=== PATIENT | female | born 1970 | race African-American/Black ===

== ENCOUNTER 2018-12-28 10:53 | Emergency (ER) | payer SELFPAY ==
[2018-12-28 12:36] LABS: HEMOGLOBIN A1C 6.2 % (4.50-6.20)
[2018-12-28] MEDS ORDERED: Sodium Chloride 0.9% 1,000 ML IV ONE (13:32)
[2018-12-28] MEDS ORDERED: Sodium Chloride 0.9% 10 ML Syringe FLUSH PRN (13:32)
[2018-12-28] MEDS ORDERED: Labetalol 100 MG/20 ML MDV IVPUSH ONE ×2 (13:32→14:15)
[2018-12-28] MEDS ORDERED: Losartan 100 MG Tab PO ONE (14:55)
--- NOTE | 2018-12-28 15:01 | CR ---
Chest: Portable view of the chest was obtained. Comparison: No prior chest imaging. Heart size and mediastinum are normal. Ventriculoperitoneal shunt is seen. Lungs are clear with no acute parenchymal change. Bony structures are grossly intact. Impression: 1. Nothing acute is appreciated on portable chest x-ray. Diagnostic code #2
[2018-12-28 15:22] VITALS: BP 166/90
--- NOTE | 2018-12-28 16:10 | EDM.PDOC ---
ED HPI GENERAL MEDICAL PROBLEM - General Chief Complaint: Cardiovascular Problem Stated Complaint: DIZZY,STOMACH PAIN Time Seen by Provider: 12/28/18 13:25 Source of Information: Reports: Patient History Limitations: Reports: No Limitations - History of Present Illness INITIAL COMMENTS - FREE TEXT/NARRATIVE: Patient is a 54 year old sami speaking male who presents to the E.D. complaining of bilateral chest pain, bilateral shoulder pain, and thoracic back pain. States this has been going on for the past 3 months but notes increase over the past week. Patient states with any exertional activity He becomes tired or easier with development of chain from his back along the lateral aspect of his chest and into the anterior aspect of his chest. This is unusual for the patient. He does work as a heavy duty truck mechanic and questions if this may not be related to deconditioning. At times he does feel short of breath. At no time does experience any fever, cough, palpitations, dizziness, diaphoresis, abdominal pain, nausea vomiting, and/or any additional complaints. States he walked 10 stairs before he gets short of breath. There's been no increase in weight, PND, orthopnea. no pedal edema noted. He has a history of hypertension and high cholesterol. There is a family history of first degree relative with heart disease. He denies any history of coronary diseaseor diabetes. He does not smoke. Alcohol use none. Drug use none. he is here working with no PCP locally. 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 Psychiatric History: Reports: None Endocrine/Metabolic History: Reports: Diabetes, Type II Hematologic History: Reports: None Immunologic History: Reports: None Oncologic (Cancer) History: Reports: None Dermatologic History: Reports: None - Infectious Disease History Infectious Disease History: Reports: Chicken Pox, Measles, Mumps - Past Surgical History HEENT Surgical History: Reports: None Cardiovascular Surgical History: Reports: None Female Surgical History: Reports: Section, Tubal Ligation Neurological Surgical History: Reports: None Musculoskeletal Surgical History: Reports: Other (See Below) Other Musculoskeletal Surgeries/Procedures:: right arm sx Social & Family History - Family History Family Medical History: Noncontributory - Tobacco Use Smoking Status *Q: Never Smoker - Caffeine Use Caffeine Use: Reports: Coffee - Recreational Drug Use Recreational Drug Use: Yes Drug Use in Last 12 Months: Yes Recreational Drug Type: Reports: Marijuana/Hashish Recreational Drug Use Frequency: Socially ED ROS GENERAL - Review of Systems Review Of Systems: ROS reveals no pertinent complaints other than HPI. ED EXAM, GENERAL - Physical Exam Exam: See Below Exam Limited By: No Limitations General Appearance: Alert, WD/WN, No Apparent Distress Eye Exam: Bilateral Eye: EOMI, Normal Inspection, Nystagmus (none noted), PERRL , Vision Changes (none noted) Ears: Normal External Exam, Hearing Grossly Normal Nose: Normal Inspection Throat/Mouth: Normal Inspection, Normal Oropharynx, Normal Voice, No Airway Compromise Head: Atraumatic, Normocephalic Neck: Normal Inspection, Supple, Non-Tender, Full Range of Motion Respiratory/Chest: No Respiratory Distress, Lungs Clear, Normal Breath Sounds, No Accessory Muscle Use, Chest Non-Tender Cardiovascular: Normal Peripheral Pulses, Regular Rate, Rhythm, No Murmur Peripheral Pulses: 2+: Radial (L), Radial (R) GI/Abdominal: Normal Bowel Sounds, Soft, Non-Tender, No Organomegaly, No Distention Back Exam: Normal Inspection, Full Range of Motion Extremities: Normal Inspection, Normal Range of Motion, Non-Tender, No Pedal Edema Neurological: Alert, Oriented, CN II-XII Intact, Normal Cognition, Normal Gait, No Motor/Sensory Deficits, Other (No slurred speech, facial droop, tongue deviation. No weakness discrepancies to the upper and lower extremities. Finger to nose, rapid alternating movements, and gait are all intact.) Psychiatric: Normal Affect, Normal Mood Skin Exam: Warm, Dry, Intact, Normal Color Course - Vital Signs Last Recorded V/S: Last Vital Signs Temp 98.1 F 12/28/18 11:05 Pulse 81 12/28/18 11:05 Resp 18 12/28/18 11:05 BP 166/90 H 12/28/18 15:22 Pulse Ox 100 12/28/18 11:05 - Orders/Labs/Meds Orders: Active Orders 24 hr Category Date Time Status EKG 12 Lead [EKG Documentation Completion] [RC] STAT Care 12/28/18 13:34 Active Peripheral IV Care [RC] . DIRECTED Care 12/28/18 13:33 Active Peripheral IV Insertion Adult [OM.PC] Routine Oth 12/28/18 13:32 Ordered Labs: Laboratory Tests 12/28/18 12/28/18 12/28/18 Range/Units 12:09 12:09 12:09 WBC 6.04 (3.98-10.04) K/mm3 RBC 4.48 (3.98-5.22) M/mm3 Hgb 10.2 L (11.2-15.7) gm/L Hct 33.5 L (34.1-44.9) % MCV 74.8 L (79.4-94.8) fl MCH 22.8 L (25.6-32.2) pg MCHC 30.4 L (32.2-35.5) g/dl RDW Std Deviation 56.7 H (36.4-46.3) fL Plt Count 217 (182-369) K/mm3 Neut % (Auto) 53.8 (34.0-71.1) % Lymph % (Auto) 36.4 (19.3-51.7) % [place] % (Auto) 7.6 (4.7-12.5) % Eos % (Auto) 1.2 (0.7-5.8) Baso % (Auto) 1.0 (0.1-1.2) % Neut # (Auto) 3.25 (1.56-6.13) K/mm3 Lymph # (Auto) 2.20 (1.18-3.74) K/mm3 [place] # (Auto) 0.46 H (0.24-0.36) K/mm3 Eos # (Auto) 0.07 (0.04-0.36) K/mm3 Baso # (Auto) 0.06 (0.01-0.08) K/mm3 Manual Slide Review Abnormal smear Sodium 137 (136-145) mEq/L Potassium 4.2 (3.5-5.1) mEq/L Chloride 104 (98-107) mEq/L Carbon Dioxide 27 (21-32) mEq/L Anion Gap 10.2 (5-15) BUN 14 (7-18) mg/dL Creatinine 0.9 (0.55-1.02) mg/dL Est Cr Clr Drug Dosing 67.45 mL/min Estimated GFR (MDRD) > 60 (>60) mL/min BUN/Creatinine Ratio 15.6 (14-18) Glucose 127 H (74-106) mg/dL Hemoglobin A1c 6.20 (4.50-6.20) % Calcium 8.9 (8.5-10.1) mg/dL Magnesium 2.1 (1.8-2.4) mg/dl Total Bilirubin 0.3 (0.2-1.0) mg/dL AST 10 L (15-37) U/L ALT 14 (14-59) U/L Alkaline Phosphatase 61 (46-116) U/L Troponin I < 0.017 (0.00-0.056) ng/mL Total Protein 7.2 (6.4-8.2) g/dl Albumin 3.5 (3.4-5.0) g/dl Globulin 3.7 gm/dL Albumin/Globulin Ratio 1.0 (1-2) Urine Color (Yellow) Urine Appearance (Clear) Urine pH (5.0-8.0) Ur Specific [place] (1.005-1.030) Urine Protein (Negative) Urine Glucose (UA) (Negative) Urine Ketones (Negative) Urine Occult Blood (Negative) Urine Nitrite (Negative) Urine Bilirubin (Negative) Urine Urobilinogen (0.2-1.0) Ur Leukocyte Esterase (Negative) Urine RBC (0-5) /hpf Urine WBC (0-5) /hpf Ur Epithelial Cells (0-5) /hpf Urine Bacteria (FEW) /hpf Urine Mucus (FEW) /hpf 12/28/18 Range/Units 12:25 WBC (3.98-10.04) K/mm3 RBC (3.98-5.22) M/mm3 Hgb (11.2-15.7) gm/L Hct (34.1-44.9) % MCV (79.4-94.8) fl MCH (25.6-32.2) pg MCHC (32.2-35.5) g/dl RDW Std Deviation (36.4-46.3) fL Plt Count (182-369) K/mm3 Neut % (Auto) (34.0-71.1) % Lymph % (Auto) (19.3-51.7) % [place] % (Auto) (4.7-12.5) % Eos % (Auto) (0.7-5.8) Baso % (Auto) (0.1-1.2) % Neut # (Auto) (1.56-6.13) K/mm3 Lymph # (Auto) (1.18-3.74) K/mm3 [place] # (Auto) (0.24-0.36) K/mm3 Eos # (Auto) (0.04-0.36) K/mm3 Baso # (Auto) (0.01-0.08) K/mm3 Manual Slide Review Sodium (136-145) mEq/L Potassium (3.5-5.1) mEq/L Chloride (98-107) mEq/L Carbon Dioxide (21-32) mEq/L Anion Gap (5-15) BUN (7-18) mg/dL Creatinine (0.55-1.02) mg/dL Est Cr Clr Drug Dosing mL/min Estimated GFR (MDRD) (>60) mL/min BUN/Creatinine Ratio (14-18) Glucose (74-106) mg/dL Hemoglobin A1c (4.50-6.20) % Calcium (8.5-10.1) mg/dL Magnesium (1.8-2.4) mg/dl Total Bilirubin (0.2-1.0) mg/dL AST (15-37) U/L ALT (14-59) U/L Alkaline Phosphatase (46-116) U/L Troponin I (0.00-0.056) ng/mL Total Protein (6.4-8.2) g/dl Albumin (3.4-5.0) g/dl Globulin gm/dL Albumin/Globulin Ratio (1-2) Urine Color Yellow (Yellow) Urine Appearance Clear (Clear) Urine pH 6.5 (5.0-8.0) Ur Specific [place] 1.025 (1.005-1.030) Urine Protein Trace H (Negative) Urine Glucose (UA) Negative (Negative) Urine Ketones Negative (Negative) Urine Occult Blood Negative (Negative) Urine Nitrite Negative (Negative) Urine Bilirubin Negative (Negative) Urine Urobilinogen 0.2 (0.2-1.0) Ur Leukocyte Esterase Negative (Negative) Urine RBC 0-5 (0-5) /hpf Urine WBC 0-5 (0-5) /hpf Ur Epithelial Cells 0-5 (0-5) /hpf Urine Bacteria Rare (FEW) /hpf Urine Mucus Moderate H (FEW) /hpf Meds: Medications Discontinued Medications Generic Name Dose Route Start Last Admin Trade Name Freq PRN Reason Stop Dose Admin Sodium Chloride 1,000 mls @ 150 mls/hr 12/28/18 13:32 12/28/18 13:51 Normal Saline IV 12/28/18 20:11 150 mls/hr ONETIME ONE Administration Labetalol HCl 10 mg 12/28/18 13:32 12/28/18 13:50 Normodyne IVPUSH 12/28/18 13:33 10 mg ONETIME ONE Administration Protocol Labetalol HCl 20 mg 12/28/18 14:15 12/28/18 14:18 Normodyne IVPUSH 12/28/18 14:16 20 mg ONETIME ONE Administration Protocol Losartan Potassium 100 mg 12/28/18 14:55 12/28/18 15:22 Cozaar PO 12/28/18 14:56 100 mg DAILY ONE Administration Sodium Chloride 10 ml 12/28/18 13:32 12/28/18 13:50 Saline Flush FLUSH 10 ml ASDIRECTED PRN Administration Keep Vein Open - Re-Assessments/Exams Free Text/Narrative Re-Assessment/Exam: On exam patient is alert and she is oriented 3. She does not appear to be in acute distress. Vital signs indicated blood pressure 210/130 with a heart rate 81. O2 sats 100% on room air. She is afebrile. She has a history of hypertension and was on losartan with potassium and also metformin for diabetes. She been off his medications for almost 3 months. She does have some slight dizziness sensation with no focal neurological deficits or disequilibrium. There's been no chest pain, shortness of breath, fever, vision changes, nausea vomiting, stiff neck, abdominal pain, dysuria, or any additional complaints. Patient does have a left ventricular shunt in place. She has no headache. I suspect all symptoms are associated with her hypertension. EKG impression: Sinus rhythm rate of 75, TX interval 154, QTC 447. 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 T-wave flattening in leads 2, inverted leads [address] and [address]VF. No acute ST changes noted. 1430 Patient received 2 boluses of labetalol 10 mg and 20 mg with decrease of blood pressure to 172/101. I did obtain medication list from [facility] visit. Patient was on losartan 100 mg tablet 1 tablet by mouth daily, metformin thousand milligram tablet half tablet in the a.m. and one tablet at bedtime. In addition she was on chlorthalidone 25 mg tablet 1 tablet by mouth 1 time per day. Diamox 500 mg tablet one capsule by mouth 2 times a day. Ferrous sulfate 1 tablet 325 mg by mouth 2 times a day. Labs reviewed: White blood cell count 6.04, hemoglobin 10.2, MCV 74.8, platelet count 217, sodium potassium normal. Creatinine 0.9. Glucose 127. Troponin normal. UA negative. A1c 6.20. CXR: No acute findings noted. Shunt drain present. Reviewed with Dr. Thomas. 1525 Reassessment, blood pressure 166/90. She has no symptoms at this time. I will discharge patient home with prescription for the losartan. She was instructed to see a primary care provider at [facility] in the next week. Return precautions discussed with the patient. She agreed with plan. Discharge instructions as documented. Departure - Departure Time of Disposition: 16:08 Disposition: Home, Self-Care 01 Condition: Good Clinical Impression: Hypertensive urgency Diabetes Qualifiers: Diabetes mellitus type: type 2 Diabetes mellitus continuous churn buttermaker insulin use: without intermediate use Diabetes mellitus complication status: with other specified complication Qualified Code(s): E11.69 - Type 2 diabetes mellitus with other specified complication Prescriptions: Losartan [Cozaar] 100 mg PO DAILY #30 tab Instructions: Tips for Eating Away From Home If You Have Diabetes, Hypertension , [id number] Referrals: PCP,None [Primary Care Provider] - Forms: ED Department Discharge Additional Instructions: Take the losartan as prescribed.Check your blood pressure every day at different times during the day. Allow yourself approximately 15 minutes to relax prior to taking. Do not take if in pain, with increased anxiety, or just had exercised. Keep a log with the blood pressure readings. Take your blood pressure machine and log with you to your next appointment with PCP to ensure blood pressure machine is calibrated appropriately. Appt has been scheduled with [facility] Provider 01/04/2019 at 1030 a.m. Please keep the appt. Read the educational material for HTN and Diabetes. Return to the ED at any time you develop any new or worsening symptoms. - My Orders Last 24 Hours: My Active Orders 12/28/18 13:32 Peripheral IV Insertion Adult [OM.PC] Routine 12/28/18 13:33 Peripheral IV Care [RC] . DIRECTED 12/28/18 13:34 EKG 12 Lead [EKG Documentation Completion] [RC] STAT - Assessment/Plan Last 24 Hours: My Active Orders 12/28/18 13:32 Peripheral IV Insertion Adult [OM.PC] Routine 12/28/18 13:33 Peripheral IV Care [RC] . DIRECTED 12/28/18 13:34 EKG 12 Lead [EKG Documentation Completion] [RC] STAT
== END 2018-12-28 16:27 | disposition home or self-care (01) ==
LOC: JD.ED 10:53
DX: I16.0 Hypertensive urgency (principal); E11.69 Type 2 diabetes mellitus with other specified complication; I10 Essential (primary) hypertension; Z79.899 Other long term (current) drug therapy
CPT/HCPCS: 36415; 71045; 80053; 81001; 83036; 83735; 84484; 85025; 93005; 96361; 96374; 99284; A9270; J3490; J7040; 93010